=== PATIENT | male | born 1990 | race African-American/Black ===

== ENCOUNTER 2016-12-06 09:31 | Emergency (ER) | payer OTHER ==
[~2016-12-06] VITALS: Ht 190.5 cm; Wt 104.1 kg
[~2016-12-06 09:31] MED LIST: SEROQUEL XR50 MG PO; SEROQUEL100 MG PO
[2016-12-06 10:15] LABS: BASOPHIL % 0.4 % (0-2); PLATELET COUNT 169 x10^3mcL (130-400); RED CELL DISTRIBUTION WIDTH 13.4 % (11.5-14.5)
[2016-12-06 10:18] LABS: CALCIUM 8.9 mg/dL (8.5-10.1); CARBON DIOXIDE 31.5 mmol/L (21-32); CHLORIDE SERUM 103 mmol/L (98-107); CREATININE SERUM 1.4 mg/dL (0.7-1.3); GFR1 > 60 mL/min; GLUCOSE SERUM 90 mg/dL (74-106); SODIUM SERUM 138 mmol/L (136-145)
[2016-12-06 10:22] LABS: ALBUMIN 3.7 g/dL (3.4-5.0); ALKALINE PHOSPHATASE 60 U/L (46-116); ALT/SGPT 21 U/L (16-63); AMYLASE 58 U/L (25-115); AST/SGOT 29 U/L (15-37); BILIRUBIN TOTAL 0.6 mg/dL (0.20-1.00); CHOLESTEROL 195 mg/dL (<200); LIPASE 109 IU/L (73-393); TOTAL PROTEIN, SERUM 7.6 g/dL (6.4-8.2)
[2016-12-06 11:01] VITALS: BP 148/94
[2016-12-06 11:08] LABS: UA SPECIFIC GRAVITY 1.025 (1.005-1.035); microscopic required? YES; urine erythrocyte 2+ (NEGATIVE)
[2016-12-06 11:16] LABS: AMPHETAMINE QUAL UR NONE DETECTED (NEG <=1000)
== END 2016-12-06 12:04 | disposition home or self-care (01) ==
LOC: ED 09:31
PROVIDERS: Emergency Medicine
DX: R07.89 Other chest pain (principal); F17.200 Nicotine dependence, unspecified, uncomplicated; Z71.6 Tobacco abuse counseling
CPT/HCPCS: 36415; 83880; 99406